=== PATIENT | female | born 1990 | race Caucasian/White ===

== ENCOUNTER 2023-04-26 12:11 | Emergency (ER) | payer OTHER ==
[2023-04-26 12:16] VITALS: BP 143/90; PULSE 93; RESP 18; TEMP 98.5; BMI 27.9
[2023-04-26] MEDS ORDERED: valACYclovir HCL 500 MG TABLET (FP) PO ONE (12:33)
[2023-04-26] MEDS ORDERED: predniSONE 20 MG TABLET (UD) PO ONE (12:33)
[2023-04-26] MEDS ORDERED: predniSONE 20 MG TABLET (UD) ONE (12:57)
[2023-04-26] MEDS ORDERED: valACYclovir HCL 500 MG TABLET (FP) ONE (12:59)
[2023-04-26 13:03] LABS: BASO % 0.6 % (0-2.0); EOS % 0.4 % (0-4.5); HEMATOCRIT 40.9 % (32.4-45.2); HEMOGLOBIN 13.9 GM/dL (10.7-15.3); LYMPH % 14.3 % (8-40); MCH 29.6 pg (25.7-33.7); MCHC 33.9 g/dl (32.0-36.0); MEAN CELL VOLUME 87.3 fl (80-96); MEAN PLT VOLUME 6.9 fl (7.5-11.1); MONO % 4.5 % (3.8-10.2); NEUT % 80.2 % (42.8-82.8); PLATELET COUNT 379 10^3/uL (134-434); RBC 4.68 M/mm3 (3.60-5.2); RDW 13.9 % (11.6-15.6); WHITE BLOOD COUNT 11.8 K/mm3 (4.0-10.0)
[2023-04-26 13:21] LABS: POTASSIUM 4.2 mmol/L (3.5-5.1)
[2023-04-26 13:23] LABS: ALBUMIN 4.2 g/dl (3.4-5.0); BLOOD UREA NITROGEN 10.5 mg/dL (7-18); CALCIUM 9.1 mg/dL (8.5-10.1)
[2023-04-26 13:27] LABS: CREATININE 0.8 mg/dL (0.55-1.3)
[2023-04-26 13:28] LABS: BILIRUBIN,TOTAL 0.4 mg/dL (0.2-1); TOT PROT 7.8 g/dl (6.4-8.2)
[2023-04-26 13:43] LABS: URINE APPEARANCE CLEAR; URINE BILIRUBIN NEGATIVE (NEGATIVE); URINE COLOR YELLOW; URINE GLUCOSE (UA) NEGATIVE (NEGATIVE); URINE KETONE 1+ (NEGATIVE); URINE LEUK ESTERASE NEGATIVE (NEGATIVE); URINE NITRITE NEGATIVE (NEGATIVE); URINE PROTEIN NEGATIVE (NEGATIVE); URINE UROBILINOGEN 0.2 mg/dL (0.2-1.0)
== END 2023-04-26 15:35 | disposition home or self-care (01) ==
LOC: JER 12:11
DX: R53.1 Weakness (principal); G51.0 Bell's palsy
CPT/HCPCS: 36415; 70450-TC; 80053; 81003; 84703; 85025; 87086; 99284-25